=== PATIENT | male | born 1960 | race Caucasian/White ===

== ENCOUNTER → 2016-08-18 | Outpatient (CLI) | payer OTHER ==
[~2016-08-18] MED LIST: ALBU18002 INH; ASPI-232 PO; BRIM0.1S OP; CALC500C70 PO; CLR10 PO; CMD/3 PO; DPRSCR15 TOP; FLEC100T21 PO; FLEC50TA20 PO; FLUT0.15 NAE; LEVO25TA5 PO; LEVO50TA6 PO; LISI-461 PO; LISI20TA3 PO; MOME50SP5 NAE; WARF3TAB6 PO
[2016-08-18 18:09] LABS: THYROID STIMULATING HORMONE 2.05 uIu/ml (0.300-4.500)
== END | disposition home or self-care (01) ==
LOC: C.LAB1850 17:01
PROVIDERS: ATTEND Nurse Practitioner Family
DX: E03.9 Hypothyroidism, unspecified (principal)

== ENCOUNTER → 2016-11-19 | Day surgery (SDC) | payer OTHER ==
[~2016-11-19] VITALS: Ht 182.9 cm; Wt 95.5 kg
[~2016-11-19] MED LIST changes: +ATROPINE SULFATE 0.1 MG/ML 5ML SYR IV PRN; +EpHEDrine SULFATE INJ 50 MG/ML AMP IV PRN; +PROPOFOL IV EMULSION 10 MG/ML 20 ML VIAL IV ONE
[2016-11-19 06:56] VITALS: Ht 182.9 cm; Wt 95.5 kg
[2016-11-19 07:09] VITALS: BP 146/97; PULSE 92; TEMP 36.4; O2SAT 96
[2016-11-19 08:17] VITALS: BP 128/96; PULSE 96; O2SAT 97
[2016-11-19 08:20] VITALS: BP 119/86; PULSE 50; O2SAT 98
[2016-11-19 08:24] VITALS: PULSE 57; O2SAT 98
--- NOTE | 2016-11-19 08:24 | Cardiology Procedure Brief Nt ---
Preliminary Cardiology Note Procedure Date Nov 19, 2016. 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
--- NOTE | 2016-11-19 08:43 | Anesthesiology Progress Note ---
Anesthesia Post Op Note Date & Time Nov 19, 2016 at 08:42 Vital Signs Pain Intensity: 0 Vital Signs Past 12 Hours Date Time Temp Pulse Resp B/P Pulse Ox O2 Delivery O2 Flow Rate FiO2 11/19/16 08:34 65 12 99/77 95 Room Air 11/19/16 08:24 36.4 57 16 116/84 100 Nasal Cannula 2 11/19/16 07:09 36.4 92 16 146/97 96 Room Air Notes Mental Status: alert / awake / arousable, participated in evaluation Pt Amnestic to Procedure: Yes Nausea / Vomiting: adequately controlled Pain: adequately controlled Airway Patency, RR, SpO2: stable & adequate BP & HR: stable & adequate Hydration State: stable & adequate Anesthetic Complications: no major complications apparent
--- NOTE | 2016-11-19 09:16 | Discharge Instructions ---
Discharge Instructions Date of Service Nov 19, 2016. Admission Atrial flutter Discharge Discharge Diagnosis / Problem: S/P Electrical Cardioversion Discharge Goals Goal(s): Improve disease control Activity Recommendations Activity Limitations: as noted below . Instructions / Follow-Up Instructions / Follow-Up ACTIVITY RECOMMENDATIONS: * May resume driving tomorrow. SPECIAL CARE: * May apply burn ointment for skin irritation. * Please contact physician for any lightheadedness, dizziness or palpitations. Follow-up: 12/30/16 @ 11:[address] [facility] Current Hospital Diet Patient's current hospital diet: AHA Diet (Heart Healthy) Discharge Diet Recommended Diet: AHA Diet (Heart Healthy) Pending Studies Studies pending at discharge: no Medical Emergencies . Who to Call and When: Medical Emergencies: If at any time you feel your situation is an emergency, please call 911 immediately. . Non-Emergent Contact Non-Emergency issues call your: Mill Manager . . "Provider Documentation" section prepared by Joyce Faust. . VTE Core Measure Inpt VTE Proph given/why not?: Warfarin (Coumadin)
[2016-11-19 09:25] VITALS: BP 115/78; PULSE 80; O2SAT 95
--- NOTE | 2016-11-25 16:11 | OPERATIVE REPORT ---
DATE OF OPERATION: 11/25/2016 PROCEDURE: Cardioversion. INDICATIONS FOR CARDIOVERSION: Atrial flutter. HISTORY OF PRESENT ILLNESS: This is a 56-year-old male who has a history of paroxysmal atrial fibrillation for which he is maintained on flecainide and warfarin. He has been relatively well controlled on his medications and he presented with a 3-week history of a rapid heart rate. He was noted to have atrial flutter, was maintained on warfarin and therefore is brought to the laboratory for cardioversion. DESCRIPTION OF PROCEDURE: After obtaining informed consent for the procedure, he was brought to the laboratory on the morning of 11/19/2016 being NPO after midnight. He was identified in the laboratory, connected to the recording apparatus and anteroposterior patch electrodes were placed. He was anesthetized by the anesthesia department and once adequately anesthetized, a 200 joule biphasic synchronized shock was delivered to convert the rhythm to sinus with a single shock. He tolerated the procedure well. There were no complications. He will be observed briefly and then discharged. DARREN
== END | disposition home or self-care (01) ==
LOC: C.CATH 06:46
PROVIDERS: ATTEND Internal Medicine Cardiovascular Disease
DX: I48.92 Unspecified atrial flutter (principal); I48.0 Paroxysmal atrial fibrillation; I10 Essential (primary) hypertension; I25.10 Atherosclerotic heart disease of native coronary artery without angina pectoris; G47.30 Sleep apnea, unspecified; J45.909 Unspecified asthma, uncomplicated; Z79.01 Long term (current) use of anticoagulants; Z79.899 Other long term (current) drug therapy; Z79.82 Long term (current) use of aspirin

== ENCOUNTER → 2017-01-25 | Outpatient (CLI) | payer OTHER ==
[~2017-01-25] MED LIST changes: -ATROPINE SULFATE 0.1 MG/ML 5ML SYR IV PRN; -CMD/3 PO; -EpHEDrine SULFATE INJ 50 MG/ML AMP IV PRN; -FLEC100T21 PO; -LISI-461 PO; -MOME50SP5 NAE; -PROPOFOL IV EMULSION 10 MG/ML 20 ML VIAL IV ONE
[2017-01-25 09:59] LABS: BASO % 0.2 %; BASO ABS # 0.01 K/uL (0-0.2); COMPLETE YES; EOS % 3.1 %; HEMATOCRIT 46.2 % (42-52); IG% 0.2 %; LYMPH % 35.9 %; MEAN CORPUSCULAR HEMOGLOBIN 30.2 pg (25-34); MEAN CORPUSCULAR HGB CONC 32.5 g/dl (32-36); MEAN PLATELET VOLUME 9.9 fL (7.4-10.4); MONO % 8.8 %; NEUT % 51.8 %; PLATELET COUNT 141 K/uL (130-400); RED BLOOD COUNT 4.97 M/uL (4.7-6.1); WHITE BLOOD COUNT 5.57 K/uL (4.8-10.8)
[2017-01-25 10:27] LABS: ALT/SGPT 28 U/L (12-78); AST/SGOT 19 U/L (15-37); BLOOD UREA NITROGEN 22 mg/dl (7-18); CARBON DIOXIDE 26 mmol/L (21-32); CHLORIDE 107 mmol/L (98-107); GLUCOSE 89 mg/dl (70-99); MAGNESIUM 2.1 mg/dl (1.8-2.4); POTASSIUM 4.5 mmol/L (3.5-5.1); SODIUM 141 mmol/L (136-145)
[2017-01-25 10:34] LABS: ALB/GLOB RATIO 1.2 (0.9-2); ALKALINE PHOSPHATASE 88 U/L (45-117); CHOLESTEROL 163 mg/dl (0-200); CHOLESTEROL/HDL RATIO 4.1; HDL CHOLESTEROL 40 mg/dl; LDL CHOLESTEROL CALCULATED 89 mg/dl; TRIGLYCERIDES 171 mg/dl (0-150); VERY LOW DENSITY LIPOPROT CALC 34 mg/dl
== END | disposition home or self-care (01) ==
LOC: C.LAB1850 09:13
PROVIDERS: ATTEND Nurse Practitioner Family
DX: I10 Essential (primary) hypertension (principal); I48.91 Unspecified atrial fibrillation; E03.9 Hypothyroidism, unspecified; Z13.220 Encounter for screening for lipoid disorders; Z13.1 Encounter for screening for diabetes mellitus

== ENCOUNTER → 2017-01-25 | Outpatient (CLI) | payer OTHER ==
--- NOTE | 2017-01-25 09:53 | DIAGNOSTIC IMAGING REPORT ---
LUMBAR SPINE 5 VIEWS HISTORY: M52.5 Low back [id number] COMPARISON: Lumbar spine 02/20/2015. FINDINGS: There is no fracture. No subluxation. There are 5 lumbar-type vertebral with L5 demonstrated to be a transitional vertebra. Stable 13 mm calcification within the right upper quadrant likely representing a gallstone. Moderate facet degenerative changes within the lower lumbar spine. The sacrum appears intact. Moderate disc space narrowing at L4-5. Mild disc space narrowing at L3-L4. This remains unchanged. IMPRESSION: No fracture or subluxation within the lumbar spine. Stable degenerative changes within the lower lumbar spine. Electronically signed by: Brice Escobar M.D. 01/25/2017 9:51 AM Dictated Date/Time: 01/25/2017 9:49 AM
== END | disposition home or self-care (01) ==
LOC: C.RAD1850 09:29
PROVIDERS: ATTEND Nurse Practitioner Family
DX: M54.5 Low back pain (principal)

== ENCOUNTER → 2017-02-14 | Outpatient (CLI) | payer OTHER | END | disposition home or self-care (01) | LOC: C.LAB1850 10:34 | PROVIDERS: ATTEND Physician Assistant | DX: I48.91 Unspecified atrial fibrillation (principal) ==

== ENCOUNTER → 2017-03-08 | Outpatient (CLI) | payer OTHER | END | disposition home or self-care (01) | LOC: C.LAB1850 09:19 | PROVIDERS: ATTEND Internal Medicine Cardiovascular Disease | DX: I48.91 Unspecified atrial fibrillation (principal) ==

== ENCOUNTER → 2017-04-25 | Outpatient (CLI) | payer OTHER ==
[2017-04-26 12:02] LABS: URINE APPEARANCE CLOUDY (CLEAR); URINE BILIRUBIN NEG (NEG); URINE COLOR DK YELLOW; URINE EPITHELIAL CELL AUTO 0-5 /lpf (0-5); URINE NITRITE NEG (NEG); URINE SPECIFIC GRAVITY 1.028 (1.000-1.030); UROBILINOGEN NEG (NEG)
[2017-04-26 12:20] LABS: MANUAL MICROSCOPIC REQUIRED? NO; REVIEW REQ? NO
== END | disposition home or self-care (01) ==
LOC: C.LABSPEC 11:09
PROVIDERS: ATTEND Nurse Practitioner Family
DX: R39.9 Unspecified symptoms and signs involving the genitourinary system (principal)

== ENCOUNTER → 2017-05-20 | Outpatient (CLI) | payer OTHER ==
[2017-05-20 17:57] LABS: URINE APPEARANCE CLEAR (CLEAR); URINE BILIRUBIN NEG (NEG); URINE COLOR YELLOW; URINE NITRITE NEG (NEG); URINE PH 6.5 (4.5-7.5); URINE SPECIFIC GRAVITY 1.016 (1.000-1.030); UROBILINOGEN NEG (NEG)
[2017-05-20 18:10] LABS: MANUAL MICROSCOPIC REQUIRED? NO; REVIEW REQ? NO
== END | disposition home or self-care (01) ==
LOC: C.LAB1850 15:25
PROVIDERS: ATTEND Nurse Practitioner Family
DX: N41.9 Inflammatory disease of prostate, unspecified (principal)

== ENCOUNTER → 2017-05-24 | Outpatient (CLI) | payer OTHER ==
--- NOTE | 2017-05-24 14:56 | DIAGNOSTIC IMAGING REPORT ---
ABDOMEN 2VIEW W/PA CHEST RTN HISTORY: 56 years-old Male K59.00 [id number] acute constipation COMPARISON: Lumbar spine radiographs 02/20/2015, abdominal ultrasound 03/10/2012 TECHNIQUE: Frontal view of the chest with erect and supine views of the abdomen FINDINGS: Cardiomediastinal and hilar silhouettes are within normal limits. Azygos lobe and fissure noted. Mild biapical pleural-parenchymal scarring without pneumothorax, pleural effusion, focal airspace consolidation or overt pulmonary edema. Bones of the chest are grossly intact. 1.3 cm round calcification of the right upper abdomen appears unchanged. Bowel gas pattern is nonobstructive. No pneumoperitoneum on the upright projection. Moderate volume of formed stool is present throughout the colon, notably within the ascending, transverse and descending portions. Only mild stool volume of the rectosigmoid. No definite urolith. Mild convex right curvature of the lumbar spine. No fracture. IMPRESSION: 1. No acute cardiopulmonary process. 2. Moderate formed stool of the colon as above suggests constipation. Nonobstructive bowel gas pattern. 3. Unchanged 1.3 cm round calcification of the right upper abdomen is unchanged suggesting cholelithiasis. The above report was generated using voice recognition software. It may contain grammatical, syntax or spelling errors. Electronically signed by: Jerel Powers M.D. 05/24/2017 2:55 PM Dictated Date/Time: 05/24/2017 2:50 PM
== END | disposition home or self-care (01) ==
LOC: C.RAD1850 14:39
PROVIDERS: ATTEND Physician Assistant
DX: K59.00 Constipation, unspecified (principal); R93.5 Abnormal findings on diagnostic imaging of other abdominal regions, including retroperitoneum

== ENCOUNTER → 2017-09-29 | Outpatient (CLI) | payer OTHER ==
[~2017-09-29] VITALS: Ht 182.9 cm; Wt 95.6 kg
[2017-09-29 16:02] VITALS: BP 160/96; PULSE 50; Ht 182.9 cm; Wt 95.6 kg
[2017-09-29 16:03] VITALS: BP 160/95; PULSE 51
== END | disposition home or self-care (01) ==
LOC: C.NEUR 15:34
PROVIDERS: ATTEND Physician Assistant
DX: G47.31 Primary central sleep apnea (principal); I10 Essential (primary) hypertension

== ENCOUNTER → 2017-12-13 | Outpatient (CLI) | payer OTHER ==
[2017-12-13 14:03] LABS: ALBUMIN 3.7 gm/dl (3.4-5.0); ALT/SGPT 20 U/L (12-78); AST/SGOT 14 U/L (15-37); BLOOD UREA NITROGEN 18 mg/dl (7-18); CALCIUM 8.5 mg/dl (8.5-10.1); CARBON DIOXIDE 26 mmol/L (21-32); CREATININE 1.23 mg/dl (0.60-1.40); GLUCOSE 88 mg/dl (70-99); POTASSIUM 4.2 mmol/L (3.5-5.1); SODIUM 139 mmol/L (136-145)
[2017-12-13 14:13] LABS: ALKALINE PHOSPHATASE 95 U/L (45-117); CHOLESTEROL 143 mg/dl (0-200); LDL CHOLESTEROL CALCULATED 77 mg/dl; TOTAL PROTEIN 7.3 gm/dl (6.4-8.2)
== END | disposition home or self-care (01) ==
LOC: C.LAB1850 09:37
PROVIDERS: ATTEND Nurse Practitioner Family
DX: I10 Essential (primary) hypertension (principal); I25.10 Atherosclerotic heart disease of native coronary artery without angina pectoris; E03.9 Hypothyroidism, unspecified; I48.91 Unspecified atrial fibrillation